=== PATIENT | male | born 1975 | race Caucasian/White ===

== ENCOUNTER 2019-09-14 00:38 | Emergency (ER) | payer OTHER, SELFPAY ==
[2019-09-14 00:40] VITALS: BP 149/100; PULSE 99; RESP 20; TEMP 36.7; O2SAT 99
--- NOTE | 2019-09-14 01:25 | PC.NURSE ---
Pt ripped arm band off stating it was other important people for us to take are of and that his jaw wasn't important. Pt left ER before being d/c by .
== END 2019-09-14 01:25 | disposition left against medical advice (07) ==
PROVIDERS: PCP Internal Medicine
DX: Z53.21 Procedure and treatment not carried out due to patient leaving prior to being seen by health care provider (principal)
CPT/HCPCS: 99199

== ENCOUNTER 2021-03-02 11:44 | Emergency (ER) | payer OTHER, SELFPAY ==
--- NOTE | 2021-03-02 11:50 | ED.URI ---
HPI - URI/Sore Throat General Chief Complaint: Upper Respiratory Infection Stated Complaint: Cough,Stuffy Nose Time Seen by Provider: 03/02/21 11:51 Source: patient, RN notes reviewed and old records reviewed Mode of arrival: ambulatory Limitations: no limitations History of Present Illness HPI Narrative: 45-year-old male presents to the [facility] with complaints of a I have a really bad cold. Reports a cough, runny nose, stuffy nose for the last 8 days. No treatment prior to arrival. Patient according to medications on file has a history of bipolar, anxiety and high cholesterol. Patient denied any past medical or surgical history. Patient appears nontoxic. In no acute distress Patient does smoke. MD elicited complaint: cough Related Data Home Medications Medication Instructions Recorded Confirmed lithium carbonate 600 mg capsule 600 mg PO QHS 01/04/21 03/02/21 lamotrigine 100 mg PO DAILY 03/02/21 03/02/21 lorazepam 1 mg PO BID PRN 03/02/21 03/02/21 Allergies Allergy/AdvReac Type Severity Reaction Status Date / Time ampicillin Allergy Intermediate Verified 03/02/21 12:02 CHILD/DOES NOT KNOW REACTION Penicillins Allergy Unknown Swelling Verified 03/02/21 12:02 Review of Systems Review of Systems: All systems reviewed & are unremarkable except as noted in HPI and below Constitutional: Constitutional: Reports no additional constitutional complaints, Denies chills and Denies fever(s) Eyes: Eyes: Reports no additional eye complaints ENT: Reports as per HPI and Reports nasal congestion Cardiovascular: Cardiovascular: Reports no additional cardiovascular complaints and Denies chest pain Respiratory: Respiratory: Reports as per HPI, Denies chest congestion, Reports cough, Denies dyspnea and Denies wheezing Gastrointestinal: Gastrointestinal: Reports no additional gastrointestinal complaints, Denies abdominal pain, Denies nausea and Denies vomiting Musculoskeletal: Musculoskeletal: Reports no additional musculoskeletal complaints Integumentary/Breasts: Skin/Breast: Reports system reviewed and no additional complaints, except as docu Neurologic: Reports system reviewed and no additional complaints, except as documented Hematologic/Lymphatic: Hematologic/Lymphatic: Reports no additional hematologic/lymphatic complaints Allergic/Immunologic: Allergic/Immunologic: Reports no additional allergic/immunologic complaints PMFSH Past Medical History Medical History Anxiety Hyperlipidemia Leukocytopenia Leukocytosis Surgical History Surgical History History of excision of mass Excision back mass- 2011 Family History Family History Mother Hypertension Thyroid disease Social History Social History Smoking packs per day: 0.5 Smoking cigarettes per day: 10.0 Smoking status: Current every day smoker Alcohol intake: current Substance use: never Comments At the time of my signature, I reviewed and agree with the nursing past medical, surgical, social, and family history. There is no relevant family history pertinent to the patient complaint. Exam Const: General: healthy appearing, no acute distress and alert Nutritional Appearance: well nourished Orientation/consciousness: patient oriented x3 Limitations: no limitations HENMT: Head: normal to inspection Ears: external ears normal, TM's normal bilaterally and Abnormal EAC present excessive cerumen General nose exam: Normal nares present, Normal nasal mucous membranes and turbinates present and No nasal discharge present Face and sinus: face symmetric and sinus tenderness frontal and maxillary Mouth: Yes Normal oral and palatal mucosa present and Yes lip normal Throat: posterior oropharynx normal, uvula midline and postnasal drainage Eye
[2021-03-02 11:54] VITALS: BP 137/75; PULSE 96; RESP 16; TEMP 36.9; O2SAT 96
== END 2021-03-02 12:14 | disposition home or self-care (01) ==
PROVIDERS: Emergency Provider Nurse Practitioner; PCP Internal Medicine
DX: J01.40 Acute pansinusitis, unspecified (principal); F41.9 Anxiety disorder, unspecified; E78.5 Hyperlipidemia, unspecified; F17.210 Nicotine dependence, cigarettes, uncomplicated
CPT/HCPCS: 99213; G0463

== ENCOUNTER 2021-03-31 12:54 | Outpatient (CLI) | payer OTHER, SELFPAY ==
--- NOTE | ~2021-03-31 | MM_ITS ---
EXAMINATION: MM diagnostic mammo unilat LT HISTORY: Mastodynia of the left breast TECHNIQUE: Full field digital craniocaudal and mediolateral oblique views of the left breast were obt ained. A right mediolateral oblique view is obtained for comparison. CAD analysis was submitted and i nterpreted. COMPARISON: None BREAST PARENCHYMAL COMPOSITION: The breasts are almost entirely fatty. FINDINGS: There is flame-shaped subareolar focal asymmetry of the left breast compared to the right. No suspicious mass, calcification, or architectural distortion are identified. IMPRESSION: 1. Mammographic findings consistent with asymmetric gynecomastia of the left breast. Clinical follow- up is recommended. BI-RADS Category 2: Benign finding(s). Reviewed, dictated and finalized at location A. PROCESS HELPER IMPRESSION: 1. Mammographic findings consistent with asymmetric gynecomastia of the left br east. Clinical follow-up is recommended. BI-RADS Category 2: Benign finding(s).
== END 2021-03-31 12:55 | disposition home or self-care (01) ==
LOC: ANHIMG 12:55
PROVIDERS: PCP Internal Medicine; Visit Provider Nurse Practitioner
DX: N64.4 Mastodynia (principal)
CPT/HCPCS: 77065

== ENCOUNTER → 2022-02-04 09:16 | Outpatient (CLI) | payer OTHER, SELFPAY ==
--- NOTE | ~2022-02-04 | XR_ITS ---
EXAMINATION:[id number] DATE: 02/04/2022 09:45 INDICATION: Neck pain TECHNIQUE: AP, lateral, lateral swimmers and odontoid views of the cervical spine are provided. COMPARISON: None FINDINGS: Alignment is normal. The odontoid is intact. No fracture is identified. There is mild loss of intervertebral disc space height throughout the cervical spine the vertebral body heights are norm al. There is [id number] facet and uncovertebral joint osteoarthritis of the lower cervical spin e left greater than right. Prevertebral soft tissues are normal. IMPRESSION: 1. Mild cervical spondylosis without acute findings Reviewed, dictated and finalized at location A.
== END ==
PROVIDERS: PCP Internal Medicine; Visit Provider Clinical Nurse Specialist
DX: M47.22 Other spondylosis with radiculopathy, cervical region (principal)
CPT/HCPCS: 72040

== ENCOUNTER 2023-05-31 07:00 | Outpatient (NON) | payer OTHER, SELFPAY | END 2023-05-31 07:01 | disposition home or self-care (01) | LOC: ANHLAB 06-01 07:38 | PROVIDERS: PCP Internal Medicine; Visit Provider Internal Medicine Gastroenterology | DX: Z12.11 Encounter for screening for malignant neoplasm of colon (principal) | CPT/HCPCS: 88305 ==

== ENCOUNTER 2023-05-31 07:19 | Day surgery (SDC) | payer OTHER, SELFPAY ==
[2023-05-12 14:41] VITALS: BMI 25.5
--- NOTE | 2023-05-31 08:17 | P.HP_ITS ---
History of Present Illness History of Present Illness Consent: Risks, benefits, and alternatives have been discussed and questions answered. Patient agrees to proceed with procedure. Chief complaint: Neoplasm Screening Narrative: Ykaov Casas is a 48 year old male presents for screening colonoscopy. Patient's current weight appetite and bowel movements are normal. Patient denies abdominal pain. He has had no bleeding. Family history is noncontributory. Review of Systems Review of Systems: Review of systems noncontributory. [facility] Past Medical History Medical History (Updated 03/09/23 @ 10:38 by NAVNEET Otto-C) Anxiety Hyperlipidemia Leukocytopenia Leukocytosis Surgical History Surgical History H/O excision of epidermal inclusion cyst exc of recurrent epidermal cyst mid back 02/18/21 History of excision of mass Excision back mass- 2010 Family History Family History Father Patient's father is in good health Sibling Patient's sister is in good health Mother Hypertension Thyroid disease Other Diabetes mellitus Social History Social History Social History: Caffeine-Coffee Smoking packs per day: 0.5 Smoking cigarettes per day: 10.0 Smoking status: Current every day smoker Tobacco type: cigarettes Smoking end date: 05/08/12 Alcohol intake: current Drinks per week: 12 Alcohol use details: 12 pk a week Substance use: never Substance use type: does not use Living arrangements: with family Spiritual care concerns: No Meds Home Medications and Allergies Home Medications Medication Instructions Recorded Confirmed Type lithium carbonate 600 mg capsule 600 mg PO QHS 01/04/21 05/31/23 History lamotrigine 100 mg tablet 100 mg PO DAILY 03/02/21 05/31/23 History lorazepam 1 mg tablet 1 mg PO BID PRN Anxiety 03/02/21 05/31/23 History Allergies Allergy/AdvReac Type Severity Reaction Status Date / Time ampicillin Allergy Intermediate Verified 05/31/23 08:10 CHILD/DOES NOT KNOW REACTION Penicillins Allergy Unknown Unknown Verified 05/31/23 08:10 Exam Narrative: Physical exam reveals patient to be alert signs stable. HEENT exam is unremarkable. Patient is anicteric. Lungs are clear to auscultation and percussion is without murmur or extra sounds. Abdomen bowel sounds are present soft nontender with no hepatosplenomegaly. Digital external rectal exam normal Assessment and Plan Assessment and plan (1) Screening for colon cancer: Code(s): Z12.11 - Encounter for screening for malignant neoplasm of colon Status: Acute Assessment and Plan: Patient presents today for screening colonoscopy. He appears to be at average risk for colon polyps.
[2023-05-31 08:19] VITALS: BP 115/90; PULSE 82; RESP 16; TEMP 37.1; O2SAT 96; BMI 25.3
[2023-05-31] MEDS: LACTATED RINGERS 1,000 ML 150 ML IV CONT (08:31)
--- NOTE | 2023-05-31 08:54 | WPDANESEPPF ---
Anes - Initial Pre Proc Eval Procedure: Operation Date: 05/31/23 09:30 Proposed Procedures p Screening Colonoscopy - Ron Mendoza MD Date/Time: 05/31/23 08:54 Surgeon: Ron Mendoza MD Pre Op Diagnosis: Neoplasm Screening Patient Data Age: 48 Gender: M Height: 1.83 m Weight: 84.8 kg Last Vital Signs Temp 37.1 C 05/31/23 08:19 Pulse 82 05/31/23 08:19 Resp 16 05/31/23 08:19 BP 115/90 05/31/23 08:19 Pulse Ox 96 05/31/23 08:19 O2 Del Method Room Air 05/31/23 08:19 Allergies Allergy/AdvReac Type Severity Reaction Status Date / Time ampicillin Allergy Intermediate Verified 05/31/23 08:10 CHILD/DOES NOT KNOW REACTION Penicillins Allergy Unknown Unknown Verified 05/31/23 08:10 Home Medications Medication Instructions Recorded Confirmed Type lithium carbonate 600 mg capsule 600 mg PO QHS 01/04/21 05/31/23 History lamotrigine 100 mg tablet 100 mg PO DAILY 03/02/21 05/31/23 History lorazepam 1 mg tablet 1 mg PO BID PRN Anxiety 03/02/21 05/31/23 History Patient hx anesthesia problems: none Family hx anesthesia problems: none Results Review: All pre-operative results and documents have been reviewed as part of the pre-operative evaluation. [facility] Past Medical History Medical History Anxiety Hyperlipidemia Leukocytopenia Leukocytosis Surgical History Surgical History H/O excision of epidermal inclusion cyst exc of recurrent epidermal cyst mid back 02/18/21 History of excision of mass Excision back mass- 2010 Family History Family History Father Patient's father is in good health Sibling Patient's sister is in good health Mother Hypertension Thyroid disease Other Diabetes mellitus Social History Social History Social History: Caffeine-Coffee Smoking packs per day: 0.5 Smoking cigarettes per day: 10.0 Smoking status: Current every day smoker Tobacco type: cigarettes Smoking end date: 05/08/12 Alcohol intake: current Drinks per week: 12 Alcohol use details: 12 pk a week Substance use: never Substance use type: does not use Living arrangements: with family Spiritual care concerns: No Anes - Eval Final PreProcedure Day of Procedure 05/31/23 08:54 Patient weight: normal Heart: regular rate and rhythm Lungs: clear to auscultation Airway: Mallampati scale class II Neurological: alert and oriented Last oral intake: >/= 8 hours ASA classification: II Emergent: no Anesthetic plan: proceed Anesthesia type and monitoring: general GIVS and standard monitoring Results Review: All pre-operative results and documents have been reviewed as part of the pre-operative evaluation. Informed Consent: The patient's anesthetic plan and its attendant risks and benefits were discussed with the patient/family/POA. Questions were solicited and answers provided to the satisfaction of the patient/family/POA.
[2023-05-31 09:56] VITALS: BP 106/72; PULSE 81; RESP 16; O2SAT 98
--- NOTE | 2023-05-31 10:03 | WPDANESPN ---
Anes - Prog Note Post-Op Date/Time: 05/31/23 10:03 Cardiovascular status: normal Respiratory status: normal Airway patency: baseline Mental status: baseline Post-Op hydration status: normal Vital Signs: Last Vital Signs Temp 37.1 C 05/31/23 08:19 Pulse 82 05/31/23 08:19 Resp 16 05/31/23 08:19 BP 115/90 05/31/23 08:19 Pulse Ox 96 05/31/23 08:19 O2 Del Method Room Air 05/31/23 08:19 Pain Score (VAS): 0/10 I/O: Intake & Output 05/30/23 05/31/23 05/31/23 23:59 07:59 15:59 Intake Total 800 Balance 800 Patient Feedback: Patient satisfied with anesthetic care.
[2023-05-31 10:06] VITALS: BP 102/75; PULSE 57; RESP 14; O2SAT 97
[2023-05-31 10:16] VITALS: BP 105/75; PULSE 55; RESP 16; O2SAT 97
== END 2023-05-31 10:28 | disposition home or self-care (01) ==
PROVIDERS: PCP Internal Medicine; Visit Provider Internal Medicine Gastroenterology
PROC: 0DJD8ZZ Inspection of Lower Intestinal Tract, Via Natural or Artificial Opening Endoscopic (ICD-10-PCS; CPT 45378; principal; 2023-05-31 09:30)
DX: Z12.11 Encounter for screening for malignant neoplasm of colon (principal); D12.8 Benign neoplasm of rectum; K64.8 Other hemorrhoids
CPT/HCPCS: 45385